=== PATIENT | female | born 1965 | race Caucasian/White ===

== ENCOUNTER 2016-11-25 11:48 | Emergency (ER) | payer SELFPAY ==
[2016-11-25 12:16] VITALS: BP 151/90; PULSE 81; RESP 20; TEMP 98; O2SAT 99
--- NOTE | 2016-11-25 12:36 | ED PDOC ---
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 History obtained per roof designer #[id number]. Per line palletizer, patient noticed the initial onset four days ago on her left forearm then began to appear on her left leg and upper back. Patient stated she saw the rash progressively get worse, prompting her to seek medical evaluation. She states she has not been spending more time outdoors than usual and has not had any mattress changes. She denies any associated fever and has no other medical or physical complaints at this time. Past Medical History Reviewed: Historical Data, Nursing Documentation, Vital Signs Vital Signs: Last Vital Signs Temp 98 F 11/25/16 11:57 Pulse 81 11/25/16 11:57 Resp 20 11/25/16 11:57 BP 151/90 H 11/25/16 11:57 Pulse Ox 99 11/25/16 13:05 - Medical History PMH: HTN (does not take meds) - Surgical History Surgical History: Cholecystectomy - Family History Family History: States: Unknown Family Hx - Social History Current smoker - smoking cessation education provided: No Alcohol: None Drugs: Denies - Home Medications Home Medications: Ambulatory Orders Medication Instructions Recorded DiphenhydrAMINE [Benadryl] 1 - 2 cap PO Q8 PRN #30 cap 11/25/16 Hydrocortisone 2.5% 1 applic TOP BID PRN #1 bottle 11/25/16 - Allergies Allergies/Adverse Reactions: Allergies Allergy/AdvReac Type Severity Reaction Status Date / Time No Known Allergies Allergy Verified 11/25/16 11:57 Review of Systems ROS Statement: Except As Marked, All Systems Reviewed And Found Negative Constitutional: Negative for: Fever Skin: Positive for: Rash ((+) left leg, left arm, and upper back ) Physical Exam - Reviewed Nursing Documentation Reviewed: Yes Vital Signs Reviewed: Yes - Physical Exam Appears: Positive for: Non-toxic, No Acute Distress Head Exam: Positive for: ATRAUMATIC, NORMOCEPHALIC Skin: Positive for: Rash (Multiple erythematous papules and classic breakfast lunch and dinner pattern to her left forearm, upper back, and left anterior thigh without pustules or vesicles) Eye Exam: Positive for: Normal appearance Neck: Positive for: Normal Extremity: Positive for: Normal ROM. Negative for: Deformity, Swelling Neurologic/Psych: Positive for: Alert, Oriented, Motor/Sensory Deficits - ECG O2 Sat by Pulse Oximetry: 99 - Progress ED Course And Treament: Pt. informed of the likelihood of this being bedbugs. Instructed to wash all clothes and linen in warm water and if new bites arise she is to contact psychiatric technician. Medical Decision Making Medical Decision Makin:40 Initial Impression- 50 y/o female with rash Pt will be discharged with rx for Benadryl and Hydrocortisone. Advised pt to wash her clothes and linen at home with hot water. Pt will schedule a follow up with her PMD within 2-3 days. Return precautions were given if current symptoms persist or new symptoms develop. Condition is stable for discharge. Clinical Impression- Insect bites Documented by Andres August, acting as a scribe for Jorge Simmons PA-C All medical record entries made by the Scribe were at my direction and personally dictated by me. I have reviewed the chart and agree that the record accurately reflects my personal performance of the history, physical exam, medical decision making, and the department course for this patient. I have also personally directed, reviewed, and agree with the discharge instructions and disposition. Disposition - Clinical Impression Clinical Impression: Insect bite - Patient ED Disposition Is Patient to be Admitted: No - Disposition Referrals: [facility] [place] [Outside] Disposition: Routine/Home Disposition Time: 12:40 Condition: STABLE Prescriptions: DiphenhydrAMINE [Benadryl] 1 - 2 cap PO Q8 PRN #30 cap PRN Reason: Itching / Pruritus Hydrocortisone 2.5% 1 applic TOP BID PRN #1 bottle PRN Reason: Itching / Pruritus Instructions: Bed Bugs (ED) Print Language: SOUTH [place]UD[place]
== END 2016-11-25 13:15 | disposition home or self-care (01) ==
LOC: H.ER 11:48
DX: L29.9 Pruritus, unspecified (principal)